=== PATIENT | male | born 1960 | race Caucasian/White ===

== ENCOUNTER 2021-01-17 09:01 | Emergency (ER) | payer BC, OTHER ==
[~2021-01-17] VITALS: Ht 185.4 cm; Wt 110.7 kg
[~2021-01-17 09:01] MED LIST: ASPIRIN EC81 MG PO; CIPRO500 MG PO; FENOFIBRATE145 MG PO; FISH OIL 1,0001 EAC1 PO; FLAGYL500 MG PO; GLUCOPHAGE500 MG PO; LIPITOR40 MG PO; NORCO 10-325 T1 EACH PO; NORCO 5-325 TA1 EACH PO; ULTRAM50 MG PO; VITAMIN D250000 UNIT PO; ZOFRAN ODT4 MG SL
[2021-01-17] MEDS ORDERED: GLUCOPHAGE500 MG PO (09:22)
[2021-01-17] MEDS ORDERED: HYDROCODON-ACE1 EA10 PO (12:11)
[2021-01-17] MEDS ORDERED: ZOFRAN4 MG PO (12:11)
[2021-01-17] MEDS ORDERED: FLOMAX0.4 MG PO (12:11)
== END 2021-01-17 12:20 | disposition home or self-care (01) ==
LOC: ED 09:01
DX: N13.2 Hydronephrosis with renal and ureteral calculous obstruction (principal); Z79.84 Long term (current) use of oral hypoglycemic drugs; Z79.899 Other long term (current) drug therapy; Z79.82 Long term (current) use of aspirin
CPT/HCPCS: 74176; 80053; 81001; 85025; 96374; 96375; 96376; 99284-25; J1885; J2270; J2405; J7030

== ENCOUNTER 2021-02-09 08:30 | Day surgery (SDC) | payer BC, OTHER ==
--- NOTE | 2021-02-06 09:42 | NUR ---
Covid swab collected, no complications, sent to [facility].
[~2021-02-09] VITALS: Ht 185.4 cm; Wt 63.2 kg
[~2021-02-09 08:30] MED LIST changes: +FLOMAX0.4 MG PO; +HYDROCODON-ACE1 EA10 PO; +ZOFRAN4 MG PO
--- NOTE | 2021-02-09 12:46 | NUR ---
02/09/21 1246 Sandy Gracia 1238- PT ARRIVES TO PACU NONAROUSABLE TO NOXIOUS STIMULI. RESP EVEN AND UNLABORED. OXYGEN SAT HIGH 90'S TO 100% ON 6L VIA MASK. 1242- PT AROUSABLE TO VOICE. PT UPDATED THAT HE IS IN THE RECOVERY ROOM. PT NODS AND FALLS BACK TO SLEEP.
--- NOTE | 2021-02-09 13:35 | NUR ---
1310: PT BACK TO DS RM 12 FROM PACU AWAKE AND ALERT. PT DENIES ANY NAUSEA OR PAIN, TOLERATES PO WELL. PT HAS URGE TO VOID, HAS URINAL UNDER BLANKETS. 1335: SPOUSE IN ROOM AT THIS TIME CONVERSING WITH PT. ICED WATER REFILLED AT THIS TIME. DC CRITERIA EXPLAINED, CALL LIGHT WITHIN REACH.
[2021-02-09] MEDS ORDERED: CIPRO500 MG PO (14:02)
[2021-02-09] MEDS ORDERED: OXYCODONE HCL5 MG PO (14:02)
--- NOTE | 2021-02-09 14:37 | NUR ---
1420: PT CONT TO REST IN BED WITH URGE TO VOID. PT DRIBBLES RED URINE INTO URINAL BUT STATES 7/10 PAIN WHEN TRYING TO VOID. PT RATES 4/10 PAIN WITHOUT TRYING TO VOID. SEE EMAR. PT DENIES NAUSEA AT THIS TIME. WOULD LIKE TO GET DRESSED. PLAN TO AMBULATE HALLWAYS ONCE DRESSED.
--- NOTE | 2021-02-09 15:45 | NUR ---
[id number]: PT USES CALL LIGHT TO NOTIFY RN. PT DRESSED AND SHOWS THIS RN URINAL THAT HAS APPROXIMATELY 125 MLS RED URINE WITH NO CLOTS NOTED. PT WOULD LIKE TO DC HOME AT THIS TIME, STATES PAIN IS "BETTER." DC INSTRUCTIONS PRESENTED TO PT AND SPOUSE, ALL QUESTIONS ADDRESSED. PT DC VIA WC TO SPOUSE IN PERSONAL VEHICLE AT MAIN HOSPITAL ENTRANCE TO HOME.
--- NOTE | 2021-02-16 08:41 | OR ---
[facility] [address], [place] [address] Signed DATE OF OPERATION: 02/09/2021 SURGEON: Roxanne Red MD PREOPERATIVE DIAGNOSIS: A 6 mm obstructing mid right ureteral calculus. POSTOPERATIVE DIAGNOSES: A 6 mm obstructing mid right ureteral calculus. NAME OF PROCEDURES: 1. Diagnostic cystoscopy with right retrograde pyelogram. 2. Right flexible ureteroscopy with laser lithotripsy and basket extraction of stone fragments. 3. Insertion of an indwelling 6-Polish by variable length double-J ureteral stent into the right ureter. ANESTHESIA: General. ESTIMATED BLOOD LOSS: Minimal. COMPLICATIONS: None. SPECIMENS: Fragments of obstructing right ureteral calculus sent to the lab for stone analysis. DRAINS: A 6-Polish by variable length ureteral stent inserted into the right ureter. INDICATION FOR PROCEDURE: Mr. Wan is a very pleasant 60-year-old gentleman who presented to my clinic few weeks ago with sudden onset right-sided flank pain. He underwent a CT scan in the emergency department at that time, which revealed a 6 mm right proximal ureteral calculus with associated hydronephrosis. He was sent home to attempt a trial of passage at that time. Since that time, he has been attempting a trial of passage to no avail. He recently underwent a KUB which revealed very minimal distal migration of his right ureteral calculus. Most recently, it was noted in the midportion of the right ureter. Electronically Signed By: ROXANNE RED MD 02/16/21 0841 PATIENT NAME: SULAIMAN WAN OPERATIVE REPORT DATE OF : 64 REPORT #: [id number] PHYSICIAN: ROXANNE RED MD PCP: HAYDEE RUDD MD REPORT IS CONFIDENTIAL AND NOT TO BE RELEASED WITHOUT AUTHORIZATION [facility] [address], [place] [address] Signed He presents today to undergo definitive treatment of his 6 mm right ureteral calculus. OPERATIVE FINDINGS: 1. On cystoscopy, there was no evidence of any suspicious masses, lesions, or stones. Bilateral ureteral orifices are in their normal anatomical location, effluxing clear urine. 2. Right retrograde pyelogram reveals a filling defect in the mid right ureter, consistent with the known obstructing right ureteral calculus. 3. After initially attempting semi-rigid ureteroscopy, I ultimately chose flexible ureteroscopy via a ureteral access sheath. The stone fragmented quite easily with a 270 micron fiber and a holmium laser at 8 and 0.8 settings. 100% of the fragments were successfully extracted from the right ureter. Evaluation of the right renal pelvis revealed no additional renal calculi. 4. At the end of the procedure, a 6-Polish by variable length double-J ureteral stent was inserted into the right ureter under direct visualization without difficulty. DESCRIPTION OF PROCEDURE: After informed consent was obtained, the patient was taken back to the operating room. He was transferred from the [facility] to the operating room table, where general anesthesia was induced. He was placed in the dorsal lithotomy position. His genitalia were prepped and draped in a standard sterile fashion. Using a 30-degree lens on a 22.5-Polish introducer, rigid cystoscope was inserted through his urethra and into his bladder under direct visualization. Panendoscopic views of the bladder were then obtained. Please see above findings. Attention was turned to the right ureteral orifice. A cone-tipped catheter was then used to perform a right retrograde pyelogram. Please see above findings. I initially attempted to pass a semi-rigid ureteroscope into the right ureter. However, I realized at that point in time that the stone was still too proximal in location to safely extract the stone using a semi-rigid scope. I therefore made the decision to switch to a flexible ureteroscope. The right ureter was cannulated with a 0.035 Sensor wire without difficulty. The placement of the wire was confirmed on fluoroscopy. Over the wire, I passed a 13/15 ureteral access sheath under fluoroscopic guidance without difficulty. The sheath was passed up to the level of the ureteral calculus. Repeat pyelogram was then performed via the sheath. A flexible ureteroscope was then advanced through the sheath and I immediately located the stone. The stone was fragmented with the holmium laser at 8 and 0.8 settings and fragmented quite easily. A Zero tip basket was then used to extract all of the stone fragments from the right mid ureter. This was done so without difficulty. Once I was satisfied that all the ureteral stones were extracted, I passed the scope into the right renal pelvis and performed a quick diagnostic nephroscopy. Please see above findings. I withdrew the scope, leaving the sheath behind. A Sensor wire was passed through the sheath and into the right renal pelvis again under fluoroscopic guidance. The ureteral access sheath was then removed fully intact, leaving the Sensor wire behind. Over the Electronically Signed By: ROXANNE RED MD 02/16/21 0841 PATIENT NAME: SULAIMAN WAN OPERATIVE REPORT DATE OF : 64 REPORT #: [id number] PHYSICIAN: ROXANNE RED MD PCP: HAYDEE RUDD MD REPORT IS CONFIDENTIAL AND NOT TO BE RELEASED WITHOUT AUTHORIZATION [address] [address] Signed wire, I passed a 6 by variable length double-J ureteral stent into the right ureter under direct visualization without difficulty. Once the wire was pulled, an adequate proximal coil was seen within the right renal pelvis along with an adequate distal coil in the bladder. The patient's bladder was then drained and the cystoscope was removed. The stent was left with a string attached. The string was secured to the patient's phallus. The procedure was terminated. He will now be transferred to the postanesthesia care unit in stable condition. DISPOSITION: I discussed the details of today's procedure with the patient's and answered all of her questions. I told her today that the patient may remove his indwelling ureteral stent using the string attached on February 15. He was sent home today with Cipro 500 mg p.o. b.i.d. for a total of 7 days, along with additional oxycodone 5 mg dispense #30 as needed for pain. He will be scheduled to return to clinic in April to discuss the results of his stone analysis. MD RYAN Sargent/KARIE /[id number] Copies: ~ Electronically Signed By: ROXANNE RED MD 02/16/21 0841 PATIENT NAME: SULAIMAN WAN OPERATIVE REPORT DATE OF : 64 REPORT #: [id number] PHYSICIAN: ROXANNE RED MD PCP: HAYDEE RUDD MD REPORT IS CONFIDENTIAL AND NOT TO BE RELEASED WITHOUT AUTHORIZATION
== END 2021-02-09 15:15 | disposition home or self-care (01) ==
LOC: DS 08:30
PROVIDERS: ATTEND Urology
PROC: 0T768DZ Dilation of Right Ureter with Intraluminal Device, Via Natural or Artificial Opening Endoscopic (ICD-10-PCS; 2021-02-09)
PROC: 0TC68ZZ Extirpation of Matter from Right Ureter, Via Natural or Artificial Opening Endoscopic (ICD-10-PCS; principal; 2021-02-09 09:45)
DX: N13.2 Hydronephrosis with renal and ureteral calculous obstruction (principal); I10 Essential (primary) hypertension; E78.5 Hyperlipidemia, unspecified; E11.9 Type 2 diabetes mellitus without complications; G89.29 Other chronic pain; M54.9 Dorsalgia, unspecified; Z79.82 Long term (current) use of aspirin; Z79.84 Long term (current) use of oral hypoglycemic drugs; Z87.891 Personal history of nicotine dependence
CPT/HCPCS: 00918; 77001; 82365; C1769; J0690; J1885; J2001; J2405; J2704; J3010; J7121